=== PATIENT | female | born 1990 | race Caucasian/White ===

== ENCOUNTER 2021-12-17 01:02 | Inpatient (IN) ==
[2021-12-17] MEDS ORDERED: OXYTOCIN 30 UNITS/500 ML BAG IV PRN ×2 (01:53→09:27)
[2021-12-17] MEDS ORDERED: BETAMETH SOD PHOS/ACETATE IA 6 MG/ML IM STA (01:53)
[2021-12-17] MEDS ORDERED: PENICILLIN G POTASSIUM 6 MU in DEXTROSE 5% 250 ML IV STA (01:53)
--- NOTE | 2021-12-17 01:55 | History & Physical Report ---
Date of Service December 17, 2021 Assessment & Plan (1) Supervision of normal intrauterine in primigravida: (2) premature rupture of membranes (PPROM) with onset of labor within 24 hours of rupture in third trimester, antepartum: Plan: patient is a 31-year-old at 35 weeks 5 days gestational age presents with rupture of membranes and labor. Findings reviewed with patient. Discussed recommendation for betamethasone for pre term labor / rupture. GBS unknown will start penicillin as patient is pre term. Will notify Peds. Vitals have been stable patient is otherwise doing well. Epidural p.r.n. History of Present Illness Primary Care Provider: Shweta Ren DO Patient is a 31-year-old at 35 weeks 5 days gestational age presents with rupture of membranes and early labor. Patient reports that her water broke around 10:00 p.m. on 418 and contractions started about an hour later. Patient reports that and contractions have increased in frequency and intensity since starting. Obstetric course was been otherwise uncomplicated to date. OB Labs: Blood Type O Positive 07/04/21 Antibody Screen NEGATIVE 07/04/21 Hemoglobin 11.9 g/dL (11.7-15.5) 10/24/21 Hematocrit 35.6 % (35.0-45.0) 10/24/21 Mean Corpuscular Volume 82.8 fL (80.0-100.0) 06/06/21 Platelet Count 371 Thousand/uL (140-400) 06/06/21 Rubella IgG Antibody 1.71 Index 06/06/21 HIV (1&2) Ab and P24 Ag, 4th Gener NON-REACTIVE (NON-REACTIVE) 06/06/21 Glucose 1 Hour 50 gm Load 98 mg/dL (<135) 10/24/21 OB Optional Labs: Chlamydia trachomatis RNA NOT DETECTED (NOT DETECTED) 06/06/21 Neisseria gonorrhoeae RNA NOT DETECTED (NOT DETECTED) 06/06/21 Labs Reviewed: 06/06/21 RPR Non reactive HEP B Non reactive HIV Non reactive Rubella Immune Allergies Allergy/AdvReac Type Severity Reaction Status Date / Time No Known Allergies Allergy Unverified 12/17/21 01:40 Home Medications Medication Instructions Recorded Confirmed Type aluminum chloride 20 % topical TOPICAL PRN 05/30/21 12/05/21 History solution (Drysol) citalopram 10 mg tablet 10 mg PO DAILY 05/30/21 12/17/21 History clindamycin phosphate 1 % topical 1 applic TOPICAL DAILY PRN 05/30/21 12/17/21 History gel prenat.vits,dulce,hms-ewpl-egamh 1 tab PO DAILY 05/30/21 12/17/21 History Patient History Medical History No known health problems Family History Father Brain cancer Mother Heart disease Other Diabetes Hypertension Social History (Updated 05/30/21 @ 10:10 by Stacey Albrecht) Smoking Status: Former smoker Cigarettes Per Day: few times; Hx Alcohol Use: No Hx Substance Use: No Preferred Language: Icelandic Communication Ability: Effective Rn Homecare Required: No Beliefs That Will Affect Care: None marital status: marital status details: Lamont (36) [phone] Current Living Situation: Spouse Current Living Situation Comment: lives with spouse, 2 dogs. current occupational status: employed current occupation: budget analysis, working from home. Other Information That Helps Us Care for You: No Feels Safe at Home: Yes Safety Concerns: Feels Safe At This Time Physical Exam Genitourinary: Manual OB Exam: + cervical dilation 4 cm, + cervical effacement 90%, + station 0 and + amniotic fluid ( hair seen on speculum exam, Ferning positive) clear OB Exam Monitor Tracing: + external FHT monitor used, + external uterine monitor used, + category I and + normal FHT variability Results & Data ([facility]) Vital Signs (Past 12 Hours) Vital Signs Temp Resp 12/17/21 01:22 36.5 C 16 Coding Level of Care Code None Diagnoses Supervision of normal intrauterine in primigravida Z34.00 premature rupture of membranes (PPROM) with onset of labor within 24 hours of rupture in third trimester, antepartum O42.013
[2021-12-17] MEDS: LACTATED RINGER'S 1,000 ML IV PRN ×2 (02:01→06:08)
[2021-12-17] MEDS ORDERED: SODIUM CHLORIDE 0.9% INJ 10 ML VIAL ONE (02:06)
[2021-12-17] MEDS ORDERED: BUPIVACAINE 0.25% 30 ML VIAL ONE (02:06)
[2021-12-17] MEDS ORDERED: fentaNYL citrate 100 MCG/2 ML VIAL ONE (02:06)
[2021-12-17] MEDS ORDERED: ePHEDrine sulfate 50 MG/ML AMP ONE (02:06)
[2021-12-17] MEDS ORDERED: fentaNYL 2MCG/ML ROPIVACAINE 1.25MG/ML 100 ML BAG EPI ONE (02:07)
[2021-12-17 02:30] LABS: Hematocrit (blood only) 36.2 % (37-47); Hemoglobin 12.4 g/dL (12.0-16.0); Mean Corpuscular Hemoglobin 30.9 pg (25-34); Mean Corpuscular Hgb Conc 34.3 g/dL (32-36); Mean Corpuscular Volume 90.3 fL (80-100); Mean Platelet Volume 10.6 fL (7.4-10.4); Platelet Count 273 K/uL (130-400); RDW Coefficient of Variation 14.8 % (11.5-14.5); RDW Standard Deviation 48.8 fL (36.4-46.3); Red Blood Count 4.01 M/uL (4.2-5.4); White Blood Count 13.68 K/uL (4.8-10.8)
[2021-12-17] MEDS ORDERED: NALBUPHINE HCL INJ 10 MG/ML AMP IV PRN (02:35)
[2021-12-17] MEDS ORDERED: fentaNYL 2MCG/ML ROPIVACAINE 1.25MG/ML 100 ML BAG EPI PRN (02:35)
[2021-12-17] MEDS ORDERED: NALOXONE HCL 1 MG in SODIUM CHLORIDE 0.9% 1000ML 1,000 ML IV PRN (02:35)
[2021-12-17] MEDS ORDERED: NALOXONE HCL 0.4 MG/1 ML VIAL/CARP IV PRN (02:35)
[2021-12-17] MEDS ORDERED: diphenhydrAMINE 50 MG/ML VIAL IV PRN (02:35)
[2021-12-17] MEDS ORDERED: ONDANSETRON INJ 2 MG/ML 2 ML VIAL IV PRN (02:35)
[2021-12-17] MEDS ORDERED: ePHEDrine sulfate 50 MG/ML AMP IV PRN (02:35)
--- NOTE | 2021-12-17 02:39 | Anesthesiology Consultation ---
Date of Service December 17, 2021 Assessment & Plan Chart Review Chart Review: Patient NOT seen in Pre Admission Testing and Acceptable Risk for Labor Epidural Consults Requested none ASA ASA2 Proposed Anesthesia Anesthesia Type: Labor Epidural and CSE Risk / Benefits Reviewed With: PT / POA / Parent / Guardian, Accepts Plan and Informed Consent Obtained History Height/Weight Height: 5 ft 3 in Weight: 88.904 kg Allergies Allergy/AdvReac Type Severity Reaction Status Date / Time No Known Allergies Allergy Unverified 12/17/21 01:40 Medications Home Medications Medication Instructions Recorded Confirmed Last Taken aluminum chloride 20 % topical TOPICAL PRN 05/30/21 12/05/21 Unknown solution (Drysol) citalopram 10 mg tablet 10 mg PO DAILY 05/30/21 12/17/21 12/16/21 clindamycin phosphate 1 % topical 1 applic TOPICAL DAILY PRN 05/30/21 12/17/21 12/17/21 gel prenat.vits,dulce,bhi-yiyz-iphpg 1 tab PO DAILY 05/30/21 12/17/21 12/16/21 Active Medications Generic Name Dose Route Start Last Admin Trade Name Freq PRN Reason Stop Dose Admin Lactated Ringer's 1,000 mls @ 125 mls/hr 12/17/21 01:53 12/17/21 02:01 Lr IV 12/19/21 01:52 999 mls/hr .Q8H PRN Administration L&D Protocol Protocol Penicillin G Potassium 6 mu/ 262 mls @ 262 mls/hr 12/17/21 01:53 12/17/21 02:17 Dextrose IV 12/17/21 02:52 262 mls/hr NOW STA Administration NPO Date Last Intake of Fluids: 12/17/21 Time Last Intake of Fluids: 01:00 Date Last Intake of Solids: 12/16/21 Time Last Intake of Solids: 17:00 Past Medical History Medical History No known health problems Exercise / Class Metabolic Activity II 4-5 Yardwork/Stairs/Walk up hill Past Family History Family History Father Brain cancer Mother Heart disease Other Diabetes Hypertension Past Anesthesia History No Hx of Anesthesia Complications and No Family Hx of Anesthesia Complications History of PONV No Hx of PONV and No Hx of Motion Sickness Social History Smoking Status: Former smoker tobacco type: e-cigarettes Smoking cigarettes per day: few times Hx Alcohol Use: No Hx Substance Use: No Review of Systems no chest pain or sob Physical Exam Vital Signs Last Vital Signs Temp 36.5 C 12/17/21 01:22 Pulse 57 L 12/17/21 02:33 Resp 16 12/17/21 01:22 BP 179/93 H 12/17/21 02:25 Pulse Ox 100 12/17/21 02:33 ENMT Mouth: no TMJ abnormality Thyromental Distance: > or= 3.5 Finger Breadths Mallampati Class: II Neck normal visual inspection Respiratory normal respiratory effort Auscultation: lungs clear to auscultation bilaterally Cardiovascular Rate/Rhythm: regular rate and regular rhythm Musculoskeletal Spine: normal cervical ROM Neurologic moves all extremities Psychiatric Orientation: alert and oriented x 3 Testing Laboratory Results 12/17/21 02:17
[2021-12-17] MEDS: PENICILLIN G POTASSIUM 3 MU in DEXTROSE 5% 100 ML IV PRN ×2 (06:09→10:01)
--- NOTE | 2021-12-17 09:23 | Labor Progress Brief Note ---
Date of Service December 17, 2021 Subjective Feeling pressure Assessment & Plan (1) premature rupture of membranes (PPROM) with onset of labor after 24 hours of rupture in third trimester, antepartum: Plan: PPROM/PTL, now ready to begin second stage. Pediatric hospitalist aware of pt and GA, received BMTZ and abx. Admission and Anticipated Discharge Date Admission Date: December 17, 2021 Physical Exam Genitourinary: 10/100/+3 FHT Cat 1 Colony Q-3min Results & Data ([facility]) Vital Signs (Past 12 Hours) Vital Signs Temp Pulse Resp BP Pulse Ox 12/17/21 09:19 60 135/72 97 12/17/21 09:15 20 12/17/21 09:14 61 97 12/17/21 09:09 106 H 97 12/17/21 09:07 86 156/78 H 12/17/21 09:04 78 151/95 H 97 12/17/21 08:59 68 97 12/17/21 08:57 98.2 F 20 12/17/21 08:54 63 96 12/17/21 08:49 63 131/80 96 12/17/21 08:45 20 12/17/21 08:44 68 96 12/17/21 08:42 64 94 12/17/21 08:39 59 L 97 12/17/21 08:34 65 126/71 96 12/17/21 08:30 20 12/17/21 08:29 63 97 12/17/21 08:24 72 96 12/17/21 08:20 57 L 137/84 12/17/21 08:19 60 96 12/17/21 08:15 18 12/17/21 08:14 72 97 12/17/21 08:09 69 96 12/17/21 08:04 75 124/74 97 12/17/21 08:00 20 12/17/21 07:59 73 97 12/17/21 07:54 72 97 12/17/21 07:49 81 120/70 96 12/17/21 07:45 18 12/17/21 07:44 82 97 12/17/21 07:39 84 97 12/17/21 07:34 72 118/66 95 12/17/21 07:30 18 12/17/21 07:29 70 96 12/17/21 07:24 81 96 12/17/21 07:19 81 139/80 96 12/17/21 07:17 98.2 F 18 12/17/21 07:14 81 96 12/17/21 07:09 80 97 12/17/21 07:04 77 98 12/17/21 06:59 74 96 12/17/21 06:54 69 97 12/17/21 06:49 74 119/71 97 12/17/21 06:44 81 98 12/17/21 06:39 74 96 12/17/21 06:34 72 128/72 98 12/17/21 06:29 76 99 12/17/21 06:24 86 98 12/17/21 06:19 74 98 12/17/21 06:14 83 97 12/17/21 06:09 74 98 12/17/21 06:04 71 122/66 98 12/17/21 05:59 76 97 12/17/21 05:54 75 98 12/17/21 05:49 69 132/67 98 12/17/21 05:44 76 98 12/17/21 05:39 72 99 12/17/21 05:34 70 124/71 97 12/17/21 05:29 73 100 12/17/21 05:24 70 99 12/17/21 05:19 69 123/81 99 12/17/21 05:14 66 98 12/17/21 05:09 93 H 100 12/17/21 05:04 69 136/73 100 12/17/21 04:59 64 100 12/17/21 04:54 62 100 12/17/21 04:50 62 168/92 H 12/17/21 04:49 62 100 12/17/21 04:44 59 L 99 12/17/21 04:39 60 98 12/17/21 04:34 57 L 164/97 H 100 12/17/21 04:30 20 12/17/21 04:29 53 L 99 12/17/21 04:24 61 96 12/17/21 04:19 58 L 156/95 H 99 12/17/21 04:14 60 98 12/17/21 04:09 58 L 99 12/17/21 04:04 60 166/91 H 98 12/17/21 04:00 18 12/17/21 03:59 53 L 97 12/17/21 03:54 66 98 12/17/21 03:49 59 L 145/86 H 98 12/17/21 03:44 59 L 97 12/17/21 03:39 71 97 12/17/21 03:34 57 L 163/109 H 98 12/17/21 03:29 52 L 97 12/17/21 03:24 61 98 12/17/21 03:20 51 L 163/112 H 12/17/21 03:19 50 L 100 12/17/21 03:14 61 100 12/17/21 03:09 63 100 12/17/21 03:04 82 147/102 H 100 12/17/21 03:03 68 142/98 H 12/17/21 03:01 74 150/109 H 12/17/21 02:59 61 145/98 H 100 12/17/21 02:56 55 L 162/92 H 12/17/21 02:55 97.5 F L 57 L 18 153/95 H 12/17/21 02:54 59 L 100 12/17/21 02:49 91 H 100 12/17/21 02:44 69 100 12/17/21 02:39 68 99 12/17/21 02:33 57 L 100 12/17/21 02:28 57 L 100 12/17/21 02:25 62 179/93 H 12/17/21 02:23 83 96 12/17/21 01:22 97.7 F 16 Coding Level of Care Code None Diagnoses premature rupture of membranes (PPROM) with onset of labor after 24 hours of rupture in third trimester, antepartum O42.113
--- NOTE | 2021-12-17 09:28 | Communication Note ---
Date of Service: December 17, 2021 Second stage underway. Pitocin requested by Asia Bains RN to bring contractions closer together and make pushing more effective. Orders placed.
[2021-12-17] MEDS ORDERED: OXYTOCIN 10 UNITS/ML VIAL ONE (14:16)
[2021-12-17] MEDS ORDERED: AMPICILLIN/SULBACTAM SOD 3,000 MG in 0.9 % SODIUM CHLORIDE 100 ML IV ONE (15:00)
[2021-12-17] MEDS ORDERED: ACETAMINOPHEN 325 MG TAB PO PRN (15:01)
[2021-12-17] MEDS ORDERED: BENZOCAINE 20% AER SPR 82.5 GM CAN EXT PRN (15:01)
[2021-12-17] MEDS ORDERED: HYDROCORTISONE ACETATE 25 MG SUPP PR PRN (15:01)
[2021-12-17] MEDS ORDERED: bisacodyL 10 MG SUPP PR PRN (15:01)
[2021-12-17] MEDS ORDERED: DIPHTHERIA/TETANUS/PERTUSSIS 0.5 ML SYR/VIAL IM ONE (15:01)
[2021-12-17] MEDS ORDERED: OXYTOCIN 10 UNITS/ML 10ML VIAL IM ONE (15:01)
--- NOTE | 2021-12-17 15:05 | Delivery Summary ---
Vaginal Delivery Summary Date of Service December 17, 2021 Vaginal Delivery Summary DIAGNOSES: 1. Karimi intrauterine at 35w5d gestation. 2. PPROM/PTL. 3. Group B Streptococcus Unknown, treated. PROCEDURE: Spontaneous vaginal delivery and repair of second degree laceration, manual extraction of placenta SURGEON: Shey Muro MD. TITLE INSURANCE SALES REPRESENTATIVE: None. ESTIMATED BLOOD LOSS: 500 mL. COMPLICATIONS: None. PLACENTA: Spontaneous and intact with a 3-vessel cord. DISPOSITION: Stable to labor and delivery. DESCRIPTION: The patient pushed well and brought the head to in JANETH position. The 's head was allowed to deliver with contraction force and no further active pushing, with the perineum protected during this time. There was no nuchal cord. The left shoulder was anterior. The shoulders and body delivered without any difficulty, and the was placed on the maternal abdomen. It was vigorous and moving all extremities, and making respiratory efforts. The cord was doubly clamped by the MD and then cut by the FOB. The cervix, vagina and perineum were examined and were found to have a second-degree posterior vaginal laceration which was repaired in running locked manner. At this juncture, I had to step away to deliver another patient who was delivering in a neighboring room. Dr. Sendy Del Real, resident MD, was left at the bedside applying steady gentle traction to the umbilical cord. When I returned from delivering the next patient, the placenta still had not delivered. I re-gowned and re-gloved and then attempted a gentle tug, which did not result in delivery of the placenta. The patient was encouraged to use her epidural bolus button, and I then reached along the cord to grasp the bulb of the placenta where it rested in the lower uterine segment. Using a twisting motion, I rotated the bulb to encourage separation of the remaining portion of the placental disk and membranes, which then delivered intact and with a 3VC. The fundus was firm and lochia minimal immediately after delivery. The patient was given 10u IM pitocin as her IV site had failed during pushing, and she will also be given 3g IV unasyn after re-establishment of an IV site due to manual extraction of placenta. [facility] Vaginal Delivery Charge Vaginal Delivery Codes: 27619 global code for the antepartum, delivery, and post-
--- NOTE | 2021-12-17 15:44 | Anesthesia Procedure Note ---
Date of Service December 17, 2021 Anesthesia Post Epidural Note Vital Signs Vital Signs: Temp Pulse Resp BP Pulse Ox 36.5 C 85 18 147/80 H 99 12/17/21 14:03 12/17/21 15:34 12/17/21 15:00 12/17/21 15:34 12/17/21 15:34 Notes Mental Status: alert / awake / arousable and participated in evaluation Patient Amnestic to Procedure: No Nausea / Vomiting: adequately controlled Pain: adequately controlled Airway Patency, RR, SpO2: stable & adequate BP & HR: stable & adequate Hydration State: stable & adequate Neuraxial Anesthesia: was administered and sensory block is resolving Anesthetic Complications: no major complications apparent and Pt Satisfied with anesthetic care Epidural: Removed without complications and With tip intact
[2021-12-17] MEDS: IBUPROFEN 600 MG TAB PO PRN ×2 (17:03→21:30)
[2021-12-17] MEDS: DOCUSATE SODIUM 100 MG CAP PO SCH (21:30)
[2021-12-18] MEDS ORDERED: BETAMETH SOD PHOS/ACETATE IA 6 MG/ML IM SCH (02:00)
[2021-12-18] MEDS: IBUPROFEN 600 MG TAB PO PRN ×4 (02:59→20:06)
--- NOTE | 2021-12-18 06:02 | Obstetrical Progress Note ---
Date of Service <Sendy Del Real DO - Last Filed: 12/18/21 06:55> December 18, 2021 Assessment & Plan <Sendy Del Real DO - Last Filed: 12/18/21 06:55> (1) Encounter for care and examination after delivery: 31 yo post op day1 from , doing well. -Continue routine post care. -vital signs reviewed and WNL (Tmax 36.6) -Blood Type O+, GBS unknown, Rubella immune -Encourage ambulation, monitor and control pain with Motrin, tylenol PRN, resume regular diet, monitor lochia -encourage breast pump with bottle supplement feeding -hemoglobin 12.4 Day #:: 1 <Shey Muro MD - Last Filed: 12/18/21 07:37> (1) Encounter for care and examination after delivery: Subjective <Sendy Del Real DO - Last Filed: 12/18/21 06:55> Ambulation: ambulating normally Voiding: no voiding problems Passing Gas:: Yes Diet Tolerance:: regular diet Lochia:: Small Feeding Type:: breast feeding (with bottle supplementation) Current Pain Level(1-10): 0 Review of Systems Denies fever, chills, sweats Denies shortness of breath, difficulty breathing, chest pain, palpitations, chest pressure. Denies breast pain. Denies dysuria. Denies headache or changes in vision. Physical Exam <Sendy Del Real DO - Last Filed: 12/18/21 06:55> General: Alert, oriented. No acute distress. Cardiac: Regular rate and rhythm, no murmurs/rubs/gallops. Respiratory: Clear to auscultation bilaterally a/p, no wheezes/rales/rhonchi. No increased work of breathing. Symmetrical chest rise. No respiratory distress. Abdomen: Soft, nontender, nondistended. Bowel sounds present. Uterus: Uterine fundus firm, palpable at umbilicus. Lower Extremities: No lower extremity edema or swelling. No deep calf pain. Jonathan's negative bilaterally.. Results & Data ([facility]) <Sendy Del Real DO - Last Filed: 12/18/21 06:55> Vital Signs (Past 12 Hours) Vital Signs Temp Pulse Resp BP Pulse Ox 12/18/21 04:00 36.6 C 78 20 112/72 98 12/18/21 00:00 36.7 C 84 18 123/76 98 12/17/21 19:30 36.5 C 78 18 128/83 98 <Shey Muro MD - Last Filed: 12/18/21 07:37> Co-Signing Physician Notes Resident Physician Supervision Note: I interviewed and examined the patient. Discussed with Dr. Del Real and agree with findings and plan as documented in the note. Any exceptions or clarifications are listed here: [ ] Documented By: Shey Muro MD, FACOG Resident Activity Tracking <Sendy Del Real DO - Last Filed: 12/18/21 06:55> Resident Involvement: Resident Care Provided Care Provided: Adult Hospital Medicine and OB Delivery
[2021-12-18 06:44] LABS: Hematocrit (blood only) 28.9 % (37-47); Hemoglobin 9.7 g/dL (12.0-16.0); Mean Corpuscular Hemoglobin 30.2 pg (25-34); Mean Corpuscular Hgb Conc 33.6 g/dL (32-36); Mean Platelet Volume 10.8 fL (7.4-10.4); Platelet Count 269 K/uL (130-400); RDW Coefficient of Variation 15.2 % (11.5-14.5); RDW Standard Deviation 50.6 fL (36.4-46.3); Red Blood Count 3.21 M/uL (4.2-5.4); White Blood Count 17.56 K/uL (4.8-10.8)
[2021-12-18] MEDS: DOCUSATE SODIUM 100 MG CAP PO SCH ×2 (08:38→20:06)
[2021-12-18] MEDS: PRENATAL VITAMIN 1 TAB PO SCH (08:40)
[2021-12-18] MEDS ORDERED: CITALOPRAM 20 MG TAB PO SCH ×2 (09:00→21:00)
[2021-12-18] MEDS ORDERED: Nursing to Pharmacy Communication SCH (16:00)
[2021-12-18] MEDS ORDERED: bisacodyL 5 MG TABEC PO SCH (20:00)
[2021-12-19] MEDS: IBUPROFEN 600 MG TAB PO PRN ×3 (03:35→11:58)
--- NOTE | 2021-12-19 06:04 | Obstetrical Progress Note ---
Date of Service <Sendy Del RealDO - Last Filed: 12/19/21 07:14> December 19, 2021 Assessment & Plan <Sendymarco Del Real DO - Last Filed: 12/19/21 07:14> (1) Encounter for care and examination after delivery: 31 yo post op day2 from , doing well. -Continue routine post care. -vital signs reviewed and WNL (Tmax 36.9) -Blood Type O+, GBS unknown, Rubella immune -Encourage ambulation, monitor and control pain with Motrin, tylenol PRN, resume regular diet, monitor lochia -encourage breast pump with bottle supplement feeding -hemoglobin 12.4 Day #:: 2 <Flori No MD - Last Filed: 12/19/21 08:07> (1) Encounter for care and examination after delivery: Subjective <Sendy GtDO - Last Filed: 12/19/21 07:14> Ambulation: ambulating normally Voiding: no voiding problems Passing Gas:: Yes Diet Tolerance:: regular diet Lochia:: Small Feeding Type:: breast feeding (with bottle supplementation) Current Pain Level(1-10): 0 Review of Systems Denies fever, chills, sweats Denies shortness of breath, difficulty breathing, chest pain, palpitations, chest pressure. Denies breast pain. Denies dysuria. Denies headache or changes in vision. Physical Exam <Sendy Del RealDO - Last Filed: 12/19/21 07:14> General: Alert, oriented. No acute distress. Cardiac: Regular rate and rhythm, no murmurs/rubs/gallops. Respiratory: Clear to auscultation bilaterally a/p, no wheezes/rales/rhonchi. No increased work of breathing. Symmetrical chest rise. No respiratory distress. Abdomen: Soft, nontender, nondistended. Bowel sounds present. Uterus: Uterine fundus firm, palpable at umbilicus. Lower Extremities: No lower extremity edema or swelling. No deep calf pain. Jonathan's negative bilaterally.. Results & Data ([facility]) <Sendymarco Del Real DO - Last Filed: 12/19/21 07:14> Vital Signs (Past 12 Hours) Vital Signs Temp Pulse Resp BP Pulse Ox 12/18/21 23:30 36.5 C 73 16 137/88 95 12/18/21 19:55 36.9 C 86 16 130/88 96 <Flori No MD - Last Filed: 12/19/21 08:07> Co-Signing Physician Notes Resident Physician Supervision Note: I interviewed and examined the patient. Discussed with Dr. Del Real and agree with findings and plan as documented in the note. Any exceptions or clarifications are listed here: PP2 s/p , doing well. VSS, exam benign and wnl. Stable for d/c home today Documented By: Flori No MD Resident Activity Tracking <Sendy Del Real DO - Last Filed: 12/19/21 07:14> Resident Involvement: Resident Care Provided Care Provided: Adult Hospital Medicine and OB Delivery
[2021-12-19 07:52] LABS: Hematocrit (blood only) 27.1 % (37-47); Hemoglobin 8.9 g/dL (12.0-16.0)
[2021-12-19] MEDS: DOCUSATE SODIUM 100 MG CAP PO SCH (08:15)
[2021-12-19] MEDS: PRENATAL VITAMIN 1 TAB PO SCH (08:15)
== END 2021-12-19 13:55 | disposition home or self-care (01) | DRG 807 ==
LOC: OPB 01:02 → 4S1 01:07 → 4E2 17:55